=== PATIENT | female | born 1945 | race Caucasian/White ===

== ENCOUNTER 2017-10-06 09:50 | Inpatient (IN) | payer OTHER, BC ==
[~2017-10-06] VITALS: Ht 149.9 cm; Wt 85.9 kg
[2017-10-06 10:55] LABS: HEMATOCRIT 37.5 % (36.0-46.0); HEMOGLOBIN 12.2 G/DL (11.9-15.5); MCHC 32.5 G/DL (30.0-36.0); MCV 101.4 FL (83-99); PLATELET COUNT 247 K/uL (156-360); RBC DIS.WIDTH-CV 13.6 % (11.8-14.6); RBC DIS.WIDTH-SD 51.3 % (39-53); WHITE BLOOD COUNT 12.2 K/uL (4.1-10.2)
[2017-10-06 11:04] LABS: CHLORIDE 107 mEq/L (99-109); POTASSIUM 3.9 mEq/L (3.7-5.4); SODIUM 143 mEq/L (136-147)
[2017-10-06 11:06] LABS: GLUCOSE 94 mg/dL (70-99)
[2017-10-06 11:10] LABS: CREATININE 0.8 mg/dL (0.6-1.3); GFR ESTIMATE (CALCULATED) > 59 mL/min/; UREA NITROGEN (BUN) 15 mg/dL (9-23)
[2017-10-06 11:58] LABS: INTER. NORMALIZED RATIO 0.9
[2017-10-06] MEDS ORDERED: BEPREVE10 ML BOTH EYES (13:59)
[2017-10-06] MEDS ORDERED: ALREX 0.2%100 DROP/5 BOTH EYES (13:59)
[2017-10-06] MEDS ORDERED: SYNTHROID112 MCG PO (14:00)
[2017-10-06] MEDS ORDERED: ADVAIR 250/501 DISK IH (14:00)
[2017-10-06] MEDS ORDERED: COMBIVENT RESPIM4 GM IH (14:01)
[2017-10-06] MEDS ORDERED: ECOTRIN325 MG PO (14:01)
[2017-10-06 21:45] VITALS: BP 108/60
[2017-10-06 22:03] VITALS: BP 132/62
[2017-10-06 22:05] LABS: DEVICE VENT; FI02 40 %; MECHANICAL RATE 12 resp/min; MODE AC; PEEP 5 CM/H20; TIDAL VOLUME 500 ML; TOTAL RESP RATE 18 resp/min
[2017-10-06 22:06] LABS: PCO2 39 mm Hg (35-45); PO2 93 mm Hg (80-100); pH 7.36 (7.35-7.45)
[2017-10-06 22:07] LABS: BASE EXCESS -3.2 mEq/L (-3 to +3); CARBOXY HGB 1.6 % (0-5); COMMENTS - BLOOD GASES C+A+; METHEMOGLOBIN 0.9 % (0-1.5); O2 SATURATION (CALCULATED) 97.5 % (95-99); SITE LR
[2017-10-06 23:03] VITALS: BP 115/68
[2017-10-07] VITALS (24 sets, daily range): BP systolic 90–162; BP diastolic 43–125
[2017-10-07 05:33] LABS: HEMATOCRIT 35.4 % (36.0-46.0); HEMOGLOBIN 11.1 G/DL (11.9-15.5); MCH 31.8 PG (29.0-34.0); MCHC 31.4 G/DL (30.0-36.0); MCV 101.4 FL (83-99); PLATELET COUNT 252 K/uL (156-360); RBC DIS.WIDTH-CV 13.8 % (11.8-14.6); RBC DIS.WIDTH-SD 51.6 % (39-53); RED BLOOD COUNT 3.49 M/uL (3.80-5.20); WHITE BLOOD COUNT 13.1 K/uL (4.1-10.2)
[2017-10-07 05:59] LABS: CHLORIDE 104 MEQ/L (99-109); CREATININE 0.7 MG/DL (0.6-1.3); GFR ESTIMATE (CALCULATED) > 59 mL/min/; POTASSIUM 4.3 MEQ/L (3.7-5.4); SODIUM 138 MEQ/L (136-147); UREA NITROGEN (BUN) 15 mg/dL (9-23)
[2017-10-07 06:32] LABS: GLUCOSE 118 mg/dL (70-99)
[2017-10-07 07:43] LABS: URIC ACID 3.5 mg/dL (3.1-9.2)
[2017-10-08] VITALS (19 sets, daily range): BP systolic 97–157; BP diastolic 40–78
[2017-10-09] VITALS (24 sets, daily range): BP systolic 94–153; BP diastolic 36–83
[2017-10-09 02:15] LABS: BASE EXCESS 0.2 mEq/L (-3 to +3); BICARBONATE 24.6 mEq/L (22-26); CARBOXY HGB 1.2 % (0-5); O2 SATURATION (CALCULATED) 94.7 % (95-99); PCO2 38 mm Hg (35-45); PO2 65 mm Hg (80-100); pH 7.42 (7.35-7.45)
[2017-10-09 02:16] LABS: COMMENTS - BLOOD GASES C+; DEVICE VENT; FI02 40 %; MODE SPON; PEEP 5 CM/H20; PRES. SUPPORT 12 CM/H2O; SITE LR; TOTAL RESP RATE 26 resp/min
[2017-10-09 05:43] LABS: PTT 16.6 SEC (25-37)
[2017-10-09 06:40] LABS: HEMATOCRIT 29.5 % (36.0-46.0); HEMOGLOBIN 9.4 G/DL (11.9-15.5); MCH 32.2 PG (29.0-34.0); MCHC 31.9 G/DL (30.0-36.0); RBC DIS.WIDTH-CV 13.6 % (11.8-14.6); RBC DIS.WIDTH-SD 50.7 % (39-53); RED BLOOD COUNT 2.92 M/uL (3.80-5.20); WHITE BLOOD COUNT 11.7 K/uL (4.1-10.2)
[2017-10-09 06:54] LABS: PLAT.SUFFICIENCY ADEQUATE; PLATELET COUNT 154 K/uL (156-360)
[2017-10-09 09:23] LABS: ALBUMIN 3.6 G/DL (3.2-4.8); ALKALINE PHOSPHATASE 38 IU/L (3-129); ALT (GPT) 10 IU/L (3-49); AST (GOT) 13 IU/L (2-34); CHLORIDE 108 MEQ/L (99-109); CREATININE 0.6 MG/DL (0.6-1.3); GFR ESTIMATE (CALCULATED) > 59 mL/min/; GLUCOSE 139 mg/dL (70-99); MAGNESIUM 2.2 mg/dl (1.3-2.7); PHOSPHORUS 2.7 mg/dL (2.5-4.9); SODIUM 142 MEQ/L (136-147); TOTAL BILIRUBIN 0.7 MG/DL (0.0-1.0); TOTAL PROTEIN 5.8 G/DL (6.4-8.3); UREA NITROGEN (BUN) 14 mg/dL (9-23)
[2017-10-09 09:25] LABS: POTASSIUM 3.4 MEQ/L (3.7-5.4)
[2017-10-10] VITALS (20 sets, daily range): BP systolic 91–143; BP diastolic 36–62
[2017-10-10 03:37] LABS: MCH 32.7 PG (29.0-34.0); MCHC 32.1 G/DL (30.0-36.0); MCV 101.8 FL (83-99); PLATELET COUNT 182 K/uL (156-360); RBC DIS.WIDTH-CV 14.1 % (11.8-14.6); RBC DIS.WIDTH-SD 51.7 % (39-53); RED BLOOD COUNT 2.75 M/uL (3.80-5.20)
[2017-10-10 03:54] LABS: CHLORIDE 107 mEq/L (99-109); POTASSIUM 3.9 mEq/L (3.7-5.4); SODIUM 139 mEq/L (136-147)
[2017-10-10 04:02] LABS: GLUCOSE 141 mg/dL (70-99)
[2017-10-10 04:06] LABS: CREATININE 0.7 mg/dL (0.6-1.3); GFR ESTIMATE (CALCULATED) > 59 mL/min/
[2017-10-10 04:07] LABS: UREA NITROGEN (BUN) 22 mg/dL (9-23)
[2017-10-11] VITALS (29 sets, daily range): BP systolic 95–167; BP diastolic 39–121
[2017-10-11 05:57] LABS: BASOPHIL (%) 0 % (0-1); EOSINOPHIL (%) 0.1 % (0-5); HEMATOCRIT 21.1 % (36.0-46.0); LYMPHOCYTE (%) 3.1 % (15-42); LYMPHOCYTE COUNT 0.2 K/uL (1.0-2.8); MCH 32.7 PG (29.0-34.0); MCHC 31.8 G/DL (30.0-36.0); MCV 102.9 FL (83-99); MONOCYTE (%) 2.8 % (3-12); MONOCYTE COUNT 0.2 K/uL (0-0.8); NEUTROPHIL COUNT 6.5 K/uL (1.8-6.4); NRBC (%) 0.4 /100 WBC (0-0); PLATELET COUNT 152 K/uL (156-360); RBC DIS.WIDTH-CV 13.8 % (11.8-14.6)
[2017-10-11 06:06] LABS: HEMOGLOBIN 6.7 G/DL (11.9-15.5); RED BLOOD COUNT 2.05 M/uL (3.80-5.20)
[2017-10-11 06:22] LABS: CHLORIDE 104 MEQ/L (99-109); CREATININE 0.6 MG/DL (0.6-1.3); GFR ESTIMATE (CALCULATED) > 59 mL/min/; GLUCOSE 164 mg/dL (70-99); MAGNESIUM 2.3 mg/dl (1.3-2.7); PHOSPHORUS 3.5 mg/dL (2.5-4.9); POTASSIUM 3.6 MEQ/L (3.7-5.4); SODIUM 141 MEQ/L (136-147); UREA NITROGEN (BUN) 25 mg/dL (9-23)
[2017-10-12] VITALS (20 sets, daily range): BP systolic 102–163; BP diastolic 38–72
[2017-10-12 05:10] LABS: BASOPHIL (%) 0 % (0-1); EOSINOPHIL (%) 0 % (0-5); HEMATOCRIT 24.3 % (36.0-46.0); HEMOGLOBIN 8.2 G/DL (11.9-15.5); IMMATURE GRANULOCYTE (%) 0.8 % (0.0-0.7); LYMPHOCYTE (%) 2.5 % (15-42); LYMPHOCYTE COUNT 0.2 K/uL (1.0-2.8); MCH 32.8 PG (29.0-34.0); MCHC 33.7 G/DL (30.0-36.0); MONOCYTE (%) 2.6 % (3-12); MONOCYTE COUNT 0.3 K/uL (0-0.8); NEUTROPHIL (%) 94.1 % (45-76); NEUTROPHIL COUNT 9.2 K/uL (1.8-6.4); PLATELET COUNT 148 K/uL (156-360); RBC DIS.WIDTH-CV 15.9 % (11.8-14.6); RBC DIS.WIDTH-SD 56.1 % (39-53); WHITE BLOOD COUNT 9.8 K/uL (4.1-10.2)
[2017-10-12 05:12] LABS: MCV 97.2 FL (83-99)
[2017-10-12 05:44] LABS: CHLORIDE 107 mEq/L (99-109); SODIUM 141 mEq/L (136-147)
[2017-10-12 05:45] LABS: MAGNESIUM 2.3 mg/dL (1.3-2.7)
[2017-10-12 05:46] LABS: GLUCOSE 171 mg/dL (70-99)
[2017-10-12 05:50] LABS: CREATININE 0.7 mg/dL (0.6-1.3); GFR ESTIMATE (CALCULATED) > 59 mL/min/; PHOSPHORUS 2.1 mg/dL (2.5-4.9)
[2017-10-12 05:51] LABS: UREA NITROGEN (BUN) 35 mg/dL (9-23)
[2017-10-12 05:52] LABS: POTASSIUM 4.6 mEq/L (3.7-5.4)
[2017-10-13] VITALS (23 sets, daily range): BP systolic 105–161; BP diastolic 43–92
[2017-10-13 06:01] LABS: HEMATOCRIT 25.6 % (36.0-46.0); HEMOGLOBIN 8.1 G/DL (11.9-15.5); MCH 31.6 PG (29.0-34.0); MCHC 31.6 G/DL (30.0-36.0); PLATELET COUNT 123 K/uL (156-360); RBC DIS.WIDTH-CV 15.1 % (11.8-14.6); RBC DIS.WIDTH-SD 54.3 % (39-53); RED BLOOD COUNT 2.56 M/uL (3.80-5.20); WHITE BLOOD COUNT 10.7 K/uL (4.1-10.2)
[2017-10-13 11:14] LABS: CHLORIDE 99 MEQ/L (99-109); CREATININE 0.6 MG/DL (0.6-1.3); GFR ESTIMATE (CALCULATED) > 59 mL/min/; GLUCOSE 191 mg/dL (70-99); MAGNESIUM 2.2 mg/dl (1.3-2.7); PHOSPHORUS 3.3 mg/dL (2.5-4.9); POTASSIUM 4.6 MEQ/L (3.7-5.4); SODIUM 138 MEQ/L (136-147); UREA NITROGEN (BUN) 35 mg/dL (9-23)
[2017-10-13 23:37] LABS: CHLORIDE 100 mEq/L (99-109); POTASSIUM 4.4 mEq/L (3.7-5.4); SODIUM 138 mEq/L (136-147)
[2017-10-13 23:38] LABS: GLUCOSE 168 mg/dL (70-99)
[2017-10-13 23:42] LABS: CREATININE 0.7 mg/dL (0.6-1.3); GFR ESTIMATE (CALCULATED) > 59 mL/min/
[2017-10-13 23:43] LABS: UREA NITROGEN (BUN) 38 mg/dL (9-23)
[2017-10-14] VITALS (31 sets, daily range): BP systolic 107–196; BP diastolic 40–78
[2017-10-14 07:14] LABS: CHLORIDE 97 MEQ/L (99-109); CREATININE 0.6 MG/DL (0.6-1.3); GFR ESTIMATE (CALCULATED) > 59 mL/min/; GLUCOSE 163 mg/dL (70-99); MAGNESIUM 2.2 mg/dl (1.3-2.7); PHOSPHORUS 3.3 mg/dL (2.5-4.9); POTASSIUM 4.4 MEQ/L (3.7-5.4); SODIUM 136 MEQ/L (136-147); UREA NITROGEN (BUN) 40 mg/dL (9-23)
[2017-10-14 08:23] LABS: BASOPHIL (%) 0.1 % (0-1); EOSINOPHIL (%) 0 % (0-5); HEMATOCRIT 19.6 % (36.0-46.0); HEMOGLOBIN 6.7 G/DL (11.9-15.5); IMMATURE GRANULOCYTE (%) 1.2 % (0.0-0.7); LYMPHOCYTE (%) 2.3 % (15-42); LYMPHOCYTE COUNT 0.3 K/uL (1.0-2.8); MCHC 34.2 G/DL (30.0-36.0); MCV 96.6 FL (83-99); MONOCYTE (%) 2.7 % (3-12); MONOCYTE COUNT 0.4 K/uL (0-0.8); NEUTROPHIL (%) 93.7 % (45-76); NEUTROPHIL COUNT 12.2 K/uL (1.8-6.4); NRBC (%) 0.4 /100 WBC (0-0); RBC DIS.WIDTH-SD 49.1 % (39-53); RED BLOOD COUNT 2.03 M/uL (3.80-5.20)
[2017-10-14 08:24] LABS: PLATELET COUNT 181 K/uL (156-360)
[2017-10-14 14:53] LABS: BASOPHIL (%) 0.1 % (0-1); EOSINOPHIL (%) 0 % (0-5); HEMATOCRIT 20.3 % (36.0-46.0); IMMATURE GRANULOCYTE (%) 1.4 % (0.0-0.7); LYMPHOCYTE (%) 4.6 % (15-42); LYMPHOCYTE COUNT 0.5 K/uL (1.0-2.8); MCH 31.6 PG (29.0-34.0); MCHC 33.5 G/DL (30.0-36.0); MCV 94.4 FL (83-99); MONOCYTE (%) 2.5 % (3-12); MONOCYTE COUNT 0.3 K/uL (0-0.8); NEUTROPHIL (%) 91.4 % (45-76); NEUTROPHIL COUNT 10.8 K/uL (1.8-6.4); NRBC (%) 0.2 /100 WBC (0-0); PLATELET COUNT 134 K/uL (156-360); RBC DIS.WIDTH-CV 14.7 % (11.8-14.6); RBC DIS.WIDTH-SD 50.9 % (39-53); RED BLOOD COUNT 2.15 M/uL (3.80-5.20); WHITE BLOOD COUNT 11.8 K/uL (4.1-10.2)
[2017-10-14 14:54] LABS: HEMOGLOBIN 6.8 G/DL (11.9-15.5)
[2017-10-14 21:02] LABS: BASOPHIL (%) 0.1 % (0-1); EOSINOPHIL (%) 0 % (0-5); HEMATOCRIT 23.5 % (36.0-46.0); HEMOGLOBIN 7.9 G/DL (11.9-15.5); IMMATURE GRANULOCYTE (%) 1.9 % (0.0-0.7); LYMPHOCYTE COUNT 0.3 K/uL (1.0-2.8); MCH 31.2 PG (29.0-34.0); MCHC 33.6 G/DL (30.0-36.0); MCV 92.9 FL (83-99); MONOCYTE (%) 2.1 % (3-12); MONOCYTE COUNT 0.2 K/uL (0-0.8); NEUTROPHIL (%) 92.9 % (45-76); NRBC (%) 0.3 /100 WBC (0-0); PLATELET COUNT 124 K/uL (156-360); RBC DIS.WIDTH-CV 15.4 % (11.8-14.6); RED BLOOD COUNT 2.53 M/uL (3.80-5.20); WHITE BLOOD COUNT 10.8 K/uL (4.1-10.2)
[2017-10-15] VITALS (21 sets, daily range): BP systolic 104–182; BP diastolic 36–92
[2017-10-15 05:41] LABS: BASOPHIL (%) 0.2 % (0-1); EOSINOPHIL (%) 0 % (0-5); HEMATOCRIT 20.7 % (36.0-46.0); HEMATOCRIT 21.1 % (36.0-46.0); IMMATURE GRANULOCYTE (%) 2.3 % (0.0-0.7); LYMPHOCYTE (%) 4.3 % (15-42); LYMPHOCYTE COUNT 0.4 K/uL (1.0-2.8); MCH 30.6 PG (29.0-34.0); MCHC 33.2 G/DL (30.0-36.0); MCV 92.1 FL (83-99); MCV 92.8 FL (83-99); MONOCYTE (%) 3.2 % (3-12); MONOCYTE COUNT 0.3 K/uL (0-0.8); PLATELET COUNT 115 K/uL (156-360); RBC DIS.WIDTH-CV 15.5 % (11.8-14.6); RBC DIS.WIDTH-SD 52.1 % (39-53); RED BLOOD COUNT 2.29 M/uL (3.80-5.20); WHITE BLOOD COUNT 8.8 K/uL (4.1-10.2)
[2017-10-15 06:08] LABS: CHLORIDE 98 MEQ/L (99-109); CREATININE 0.6 MG/DL (0.6-1.3); GFR ESTIMATE (CALCULATED) > 59 mL/min/; GLUCOSE 179 mg/dL (70-99); POTASSIUM 4.1 MEQ/L (3.7-5.4); SODIUM 139 MEQ/L (136-147); UREA NITROGEN (BUN) 40 mg/dL (9-23)
[2017-10-15 11:14] LABS: HEMATOCRIT 21.3 % (36.0-46.0); HEMOGLOBIN 7.3 G/DL (11.9-15.5); MCV 93.4 FL (83-99)
[2017-10-15 11:31] LABS: ABS NEUTROPHIL COUNT 8.4; ANISOCYTOSIS 1+; BAND NEUTROPHILS 1.8 % (0-8.0); EOSINOPHIL ABS CT 0; LYMPHOCYTES 3.5 % (15.0-45.0); MONOCYTES 0.9 % (0-9.0); SEG.NEUTROPHILS 93.8 % (46.0-76.0)
[2017-10-15 13:28] LABS: HEMATOCRIT 20.6 % (36.0-46.0); MCV 94.1 FL (83-99)
[2017-10-15 18:09] LABS: HEMATOCRIT 22.1 % (36.0-46.0); HEMOGLOBIN 7.6 G/DL (11.9-15.5); MCV 90.6 FL (83-99)
[2017-10-15 21:58] LABS: HEMATOCRIT 24.7 % (36.0-46.0); HEMOGLOBIN 8.5 G/DL (11.9-15.5); MCV 90.5 FL (83-99)
[2017-10-16] VITALS (19 sets, daily range): BP systolic 96–209; BP diastolic 43–100
[2017-10-16 07:14] LABS: HEMATOCRIT 25.1 % (36.0-46.0); HEMOGLOBIN 8.3 G/DL (11.9-15.5); MCH 30.6 PG (29.0-34.0); MCHC 33.1 G/DL (30.0-36.0); MCV 92.6 FL (83-99); NRBC (%) 0.3 /100 WBC (0-0); RBC DIS.WIDTH-CV 16.6 % (11.8-14.6); RBC DIS.WIDTH-SD 55.9 % (39-53); RED BLOOD COUNT 2.71 M/uL (3.80-5.20); WHITE BLOOD COUNT 10.6 K/uL (4.1-10.2)
[2017-10-16 07:25] LABS: PLATELET COUNT 165 K/uL (156-360)
[2017-10-16 07:47] LABS: ABS NEUTROPHIL COUNT 10.1; ANISOCYTOSIS NONE SEEN; BAND NEUTROPHILS 4.4 % (0-8.0); EOSINOPHIL ABS CT 0; LYMPHOCYTES 3.5 % (15.0-45.0); MONOCYTES 0.9 % (0-9.0); NUCLEATED RBC'S 0.9; PLAT.SUFFICIENCY ADEQUATE; SEG.NEUTROPHILS 91.2 % (46.0-76.0)
[2017-10-16 08:42] LABS: CHLORIDE 99 MEQ/L (99-109); CREATININE 0.6 MG/DL (0.6-1.3); GFR ESTIMATE (CALCULATED) > 59 mL/min/; GLUCOSE 181 mg/dL (70-99); POTASSIUM 4.4 MEQ/L (3.7-5.4); SODIUM 140 MEQ/L (136-147); UREA NITROGEN (BUN) 37 mg/dL (9-23)
[2017-10-17 07:19] VITALS: BP 159/66
== END 2017-10-17 14:56 | disposition hospice, home (50) | DRG 299 ==
LOC: EME 09:50 → EDOF 13:55 → 4WEST 13:55 → ENRESERV 14:26 → CANRESERV 15:18 → ENRESERV 16:00 → ENRESERVTM 19:17 → ENRESERVDT 19:17 → 4WEST 21:10
PROVIDERS: Emergency Medicine; Internal Medicine; Specialist; Surgery; Thoracic Surgery (Cardiothoracic Vascular Surgery)
DX: I87.1 Compression of vein (principal); J96.00 Acute respiratory failure, unspecified whether with hypoxia or hypercapnia; E03.9 Hypothyroidism, unspecified; I82.C11 Acute embolism and thrombosis of right internal jugular vein; J43.9 Emphysema, unspecified; R22.2 Localized swelling, mass and lump, trunk; I26.99 Other pulmonary embolism without acute cor pulmonale; I82.B11 Acute embolism and thrombosis of right subclavian vein; C34.90 Malignant neoplasm of unspecified part of unspecified bronchus or lung; Z88.1 Allergy status to other antibiotic agents; Z87.891 Personal history of nicotine dependence; Z82.5 Family history of asthma and other chronic lower respiratory diseases; Z68.35 Body mass index [BMI] 35.0-35.9, adult; E53.8 Deficiency of other specified B group vitamins
CPT/HCPCS: 36600; 70450; 70498; 71045; 71046; 71260; 71275; 77295; 77300; 77307; 77331; 77334; 77412; 77417; 77470; 80048; 80048 91; 80053; 82607; 83090 90; 83615; 83735; 83921 90; 84100; 84550; 85007; 85014; 85018; 85025; 85025 91; 85027; 85610; 85730; 86850; 86900; 86901; 86920; 87070; 87205; 87641; 88305; 88311; 88341 TC; 88342 TC; 93005; 93306; 94002; 94003; 94640; 94760; 94799; 99281; 99285; A6214; C1751; C1753; J0330; J0690; J1100; J1644; J1940; J2060; J2250; J2270; J2405; J2704; J2710; J2930; J3010; J3420; J7030; J7040; J7050; J7120; J7643; J9045; J9267; P9016; P9047; S0028